=== PATIENT | male | born 1950 | race Caucasian/White ===

== ENCOUNTER 2018-01-10 14:19 | Emergency (ER) | payer MEDICARE ==
[~2018-01-10] VITALS: Ht 180.3 cm; Wt 78.0 kg
[~2018-01-10 14:19] MED LIST: ATOR20TA66 PO; ESCI20TA29 PO; FENO135C3 PO; LISI-600 PO; PIOG30TA2 PO; ZOLP5TAB8 PO
[2018-01-10 14:30] VITALS: BP 106/65
== END 2018-01-10 16:59 | disposition home or self-care (01) ==
LOC: ER 14:20
DX: S62.501A Fracture of unspecified phalanx of right thumb, initial encounter for closed fracture (principal); M19.041 Primary osteoarthritis, right hand; Z98.890 Other specified postprocedural states; Z79.899 Other long term (current) drug therapy; W01.0XXA Fall on same level from slipping, tripping and stumbling without subsequent striking against object, initial encounter; Y93.89 Activity, other specified; Y92.89 Other specified places as the place of occurrence of the external cause; Y99.8 Other external cause status
CPT/HCPCS: 29125; 73130; 99284; A6449

== ENCOUNTER 2021-11-19 13:53 | Emergency (ER) | payer MEDICARE ==
[~2021-11-19] VITALS: Ht 172.7 cm; Wt 108.6 kg
[~2021-11-19 13:53] MED LIST changes: -LISI-600 PO; +LISI20TA28 PO
[2021-11-19 13:55] VITALS: BP 149/79
[2021-11-19] MEDS ORDERED: HYDR-3973 PO (15:07)
[2021-11-19] MEDS ORDERED: HYDROcodone/acetaminophen 10/325mg tab PO ONE (15:40)
--- NOTE | 2021-11-19 15:41 | NUR ---
po med given
== END 2021-11-19 15:43 | disposition home or self-care (01) ==
LOC: ER 13:53
DX: M25.511 Pain in right shoulder (principal); M19.011 Primary osteoarthritis, right shoulder; Z98.890 Other specified postprocedural states; Z79.899 Other long term (current) drug therapy
CPT/HCPCS: 73030; 99283